=== PATIENT | female | born 1950 | race Caucasian/White ===

== ENCOUNTER 2019-04-21 10:36 | Outpatient (CLI) | payer MEDICARE, BC ==
--- NOTE | 2019-04-21 11:35 | RAD ---
CHEST 2 VIEWS: Date: 04/21/2019 HISTORY: Cough and hoarseness for 5 days. History of sarcoidosis, bronchitis. FINDINGS: Heart size is within normal limits. Old granuloma calcifications are noted bilaterally. No confluent pneumonia, overt edema, or pleural effusion. Several thoracolumbar vertebral bodies show some vertica l height loss which appears to be old. IMPRESSION: No acute intrathoracic disease. Old granulomatous disease. POS: [facility]
== END 2019-04-21 10:37 | disposition home or self-care (01) ==
LOC: SCSRAD 10:36
PROVIDERS: ATTEND Nurse Practitioner Family
DX: J40 Bronchitis, not specified as acute or chronic (principal)
CPT/HCPCS: 71046